=== PATIENT | female | born 1985 | race Caucasian/White ===

== ENCOUNTER → 2021-07-20 | Day surgery (SDC) | payer OTHER ==
[~2021-07-20] VITALS: Ht 154.9 cm; Wt 132.0 kg
[~2021-07-20] MED LIST: BENTYL 20MG TAB20 MG PO; FISH OIL + D31 EACH PO; VITAMIN D350 MCG PO
== END | disposition home or self-care (01) ==
LOC: OR 07:25
DX: K29.50 Unspecified chronic gastritis without bleeding (principal); K21.00 Gastro-esophageal reflux disease with esophagitis, without bleeding; K58.0 Irritable bowel syndrome with diarrhea; I10 Essential (primary) hypertension; E66.01 Morbid (severe) obesity due to excess calories; Z20.822 Contact with and (suspected) exposure to COVID-19; Z90.49 Acquired absence of other specified parts of digestive tract
CPT/HCPCS: 84703; J2704; J3010; J7040